=== PATIENT | male | born 1960 | race Caucasian/White ===

== ENCOUNTER → 2018-09-08 | Outpatient (CLI) | payer BC ==
[~2018-09-08] MED LIST: DOXYCYCLINE100 MG PO; GLUCOPHAGE1000 MG PO; LISINOPRIL10 M1 PO; PAROXETINE HCL20 MG PO; ROSUVASTATIN CA20 MG PO; TRULICITY0.75 MG/0. SC; ULTRAM50 MG PO; XARELTO10 MG PO
--- NOTE | ~2018-09-08 | EKG ---
[place], [place] ELECTROCARDIOGRAM REPORT NAME: KENDRA DUBOIS UNIT #: [id number] ROOM: DOCTOR: EPIPHANY DRAFT REPORT BIRTHDATE: [birth year] [facility] Test Date: 2018-09-08 Test Time: 14:11:01 Pat Name: KENDRA DUBOIS Department: Room: Gender: M [employer]ap Security Architect: : [id number] Requested By: KRISHNA PARSON Order Number: [id number] Reading MD: Nik Cuevas MD Measurements Intervals [place] Rate: 73 P: -4 ND: 176 QRS: -35 QRSD: 99 T: 3 QT: 405 QTc: 447 Interpretive Statements Sinus rhythm Left ventricular hypertrophy Anterior Q waves, possibly due to LVH No previous ECG available for comparison Electronically Signed On 09-08-2018 18:46:45 PDT by Nik Cuevas MD CM:EKGRPT:ELECTROCARDIOGRAM REPORT [id number] KRISHNA PARSON DPM EPIPHDAVI DRAFT REPORT KRISHNA PARSON DPM
[2018-09-08 14:09] LABS: BILIRUBIN NEGATIVE (NEGATIVE); BLOOD NEGATIVE (NEGATIVE); CLARITY SL CLOUDY (CLEAR); COLOR YELLOW (YELLOW); GLUCOSE 2+ (NEGATIVE); KETONE NEGATIVE (NEGATIVE); LEUKO ESTERASE NEGATIVE (NEGATIVE); NITRITE NEGATIVE (NEGATIVE); PH 5.5 (5.0-9.0); SPECIFIC GRAVITY >= 1.030 (1.005-1.030); UROBILINOGEN 0.2 E.U./dl (0.2-1.0)
[2018-09-08 14:12] LABS: BASO # 0.1 10*3/uL (0.0-0.1); BASO % 0.9 % (0.0-1.0); EOS # 0.2 10*3/uL (0.0-0.4); EOS % 2.2 % (1.0-4.0); HEMATOCRIT 44.7 % (42.0-52.0); HEMOGLOBIN 15.7 g/dl (14.0-18.0); LYMPH # 1.8 10*3/uL (1.3-4.4); LYMPH % 27.2 % (27.0-41.0); MEAN CELL VOLUME 93.5 fl (80.0-94.0); MEAN CORPUSCULAR HGB 32.8 pg (27.0-31.0); MEAN CORPUSCULAR HGB CONC 35.1 g/dl (33.0-37.0); MEAN PLATELET VOLUME 9.7 fl (9.6-12.3); MONO # 0.5 10*3/uL (0.1-1.0); MONO % 7.2 % (3.0-9.0); NEUT # 4.2 10*3/uL (2.3-7.9); NEUT % 62.1 % (47.0-73.0); PLATELET COUNT AUTOMATED 165 10*3/uL (130-400); RED BLOOD COUNT 4.78 10*6/uL (4.50-5.90); RED CELL DISTRI WIDTH 12.3 % (0-14.5); WHITE BLOOD COUNT 6.7 10*3/uL (4.8-10.8)
[2018-09-08 14:20] LABS: BACTERIA TRACE; MUCOUS 1+
[2018-09-08 14:26] LABS: BUN 25 mg/dl (7-24); CHLORIDE 102 mmol/L (98-107); CREATININE 1.09 mg/dL (0.70-1.30); POTASSIUM 4.1 mmol/L (3.5-5.1); SODIUM 137 mmol/L (136-145)
== END | disposition home or self-care (01) ==
LOC: LAB 12:48
PROVIDERS: Podiatrist
DX: S86.312A Strain of muscle(s) and tendon(s) of peroneal muscle group at lower leg level, left leg, initial encounter (principal); R94.31 Abnormal electrocardiogram [ECG] [EKG]; I51.7 Cardiomegaly; X58.XXXA Exposure to other specified factors, initial encounter; Y93.89 Activity, other specified; Y92.89 Other specified places as the place of occurrence of the external cause; Y99.8 Other external cause status

== ENCOUNTER → 2018-09-16 | Day surgery (SDC) | payer BC ==
[~2018-09-16] VITALS: Ht 177.8 cm; Wt 97.5 kg
--- NOTE | ~2018-09-16 | WRIGHTHP ---
[place], [place] PATIENT HISTORY AND PHYSICAL EXAM NAME: KENDRA DUBOIS [facility] #: [id number] UNIT #: [id number] ROOM: DOCTOR: KRISHNA PARSON DPM BIRTHDATE: [birth year] DOS: 09/16/2018 INDICATIONS: The patient was seen for very painful left ankle, lateral aspect of his ankle has been hurting for quite some time. MRI suggested he has the split peroneal brevis tear and tenosynovitis of his peroneal longus tendon. He consented for surgery at [facility] on 09/16/2018 for debridement and repair, possible tenodesis and possibly use of Graftjacket for application of the tendon tear. With this in mind, he is aware of pros, cons, risks, benefits. He understands the perioperative management. He understands about anticoagulation therapy. The pros, cons, risks, and benefits were discussed with him and his family. In the meantime, he is aware of pros, cons, risks, benefits including overcorrection, under correction, recurrence of stump infection, worsening arterial pain, nerve injury, soft tissue defect, etc. With this in mid, he understands he may need more surgery. He is consented for surgery. He agrees with the site marking for the surgery as well. He is set for surgery today on 09/16/2018. KRISHNA PARSON DPM CM:HISPHYS:PATIENT HISTORY AND PHYSICAL EXAMINATION [id number] KRISHNA PARSON DPM 10/28/18 2011 interface
--- NOTE | ~2018-09-16 | O ---
[place], [place] OPERATIVE NOTE NAME: KENDRA DUBOIS [facility] #: [id number] UNIT #: [id number] ROOM: DOCTOR: BLANK FIELDSKRISHNA BIRTHDATE: [birth year] DOS: 09/16/2018 SURGEON: Krishna Parson DPM ASSISTANTS: 1. Dr. Dereje Mccabe. 2. Dr. Chase Jorge. PREOPERATIVE DIAGNOSES: 1. Peroneal brevis tendon tear. 2. Peroneal longus tenosynovitis of the left ankle. POSTOPERATIVE DIAGNOSES: 1. Peroneal brevis tendon tear. 2. Peroneal longus tenosynovitis of the left ankle. PROCEDURE PERFORMED: 1. Debridement and excision of the peroneal brevis tendon tear. 2. Tenodesis of the peroneal longus and the peroneal brevis tendon. 3. Application of Graftjacket, left. DESCRIPTION OF PROCEDURE: The patient was seen in preop holding area and appropriate site marking was performed. He and his family concurred and operative site was marked again and pros, cons, risks and benefits of surgery and post-treatment and the perioperative management were discussed with the patient and family. The patient was brought to OR, placed well-padded OR table, where again anesthesia was achieved. Prior to this, he had a popliteal block done on left lower extremity. Once he was on the OR table, anesthesia was achieved, his left foot and leg were prepped and draped in usual sterile fashion. Hemostasis was accomplished by mid-thigh tourniquet, it was inflated to 300 mmHg. PROCEDURE #1: DEBRIDEMENT AND EXCISION OF THE PERONEAL BREVIS TENDON TEAR. Attention directed to the left lateral aspect of the ankle, where a 6 cm incision was made from the distal retromalleolar area along the distal fibula around to the base of the fifth metatarsal, deepened in same plane using sharp and blunt dissection, avoiding neurovascular structures, carried down to the deep tissues where the significant amount of scar tissue, fibrosis and disease of tissue from the injury of the peroneal longus tendon. A very large bulbous mass of the tendon was identified and there was a bucket handle tear in the peroneal brevis tendon. This tendon then was excised and removed in total, approximately 3 cm of it. Next, the peroneal longus tendon was debrided. I removed the tenosynovitis. PROCEDURE #2: TENODESIS OF THE PERONEAL LONGUS AND THE PERONEAL BREVIS TENDON. Next, remaining stump of the distal portion and the proximal portion of the peroneal brevis stump had a relief graft inserted through the peroneal longus and this was inserted under physiological tension and sutured with 0 Vicryl and the distal stump was inserted at the ankle at 90 degrees into distal stump was secured to the peroneal longus with relief graft. This was sutured with 0 [place], [place] OPERATIVE NOTE NAME: KENDRA DUBOIS UNIT #: [id number] ROOM: DOCTOR: KRISHNA PARSON DPM BIRTHDATE: [birth year] [place]. PROCEDURE #3: APPLICATION OF GRAFTJACKET FOR TENODESIS OF THE PERONEAL LONGUS AND PERONEAL BREVIS TENDON. Next, a 2 x 4 cm Graftjacket was applied and sutured with a burrito type wrap around the peroneal longus and brevis tenodesis. This was sutured very distinctly and tightly around the graft and the tear of the peroneal longus and brevis tendon together. Next, the peroneal and extensor retinaculum then was sutured with running suture, keeping the peroneal longus or brevis tendon in the retromalleolar area without dislocation. This was sutured with 0 Vicryl and the deep sutures of 0 Vicryl and skin was closed with 2-0 nylon. Surgical wounds were dressed with Betadine-soaked Adaptic, 4 x 4s, and Rika in a sterile compressive fashion. A Univalve BK cast was applied. He tolerated the procedure and anesthesia well and left the OR with vital signs stable and vascular intact. KRISHNA PARSON DPM CM:OPRECORD:OPERATIVE NOTE 19 99 KRISHNA PARSON DPM 10/20/18 1340 interface
--- NOTE | ~2018-09-16 | WRIGHTHP ---
[place], [place] PATIENT HISTORY AND PHYSICAL EXAM NAME: KENDRA DUBOIS [facility] #: [id number] UNIT #: [id number] ROOM: DOCTOR: KRISHNA PARSON DPM BIRTHDATE: [birth year] DOS: LOWER EXTERMITY PHYSICAL EXAMINATION: VASCULAR: He has palpable pedal pulses, 2/4 DP and PT bilaterally. Good cap refill time. NEUROLOGICAL: He has intact epicritic sensation on left. DERMATOLOGICAL: He has an inflamed, erythematous area of the left lateral ankle over the peroneal tendons. MUSCULOSKELETAL: He has pain and tenderness over the peroneal brevis and longus tendon. ORTHOPEDIC: No gross deformity on the orthopedic exam. KRISHNA PARSON DPM CM:HISPHYS:PATIENT HISTORY AND PHYSICAL EXAMINATION 19 47 KRISHNA PARSON DPM 09/16/181847 interface
[2018-09-16 10:44] VITALS: BP 160/90
[2018-09-16 16:17] VITALS: BP 134/77
[2018-09-16 16:32] VITALS: BP 107/56
[2018-09-16 16:47] VITALS: BP 117/75
[2018-09-16 17:02] VITALS: BP 133/75
[2018-09-16 17:17] VITALS: BP 124/72
== END | disposition home or self-care (01) ==
LOC: SDC 09-08 12:30
DX: S86.312A Strain of muscle(s) and tendon(s) of peroneal muscle group at lower leg level, left leg, initial encounter (principal); M65.872 Other synovitis and tenosynovitis, left ankle and foot; I10 Essential (primary) hypertension; I25.2 Old myocardial infarction; E78.5 Hyperlipidemia, unspecified; E11.9 Type 2 diabetes mellitus without complications; F32.9 Major depressive disorder, single episode, unspecified; K21.9 Gastro-esophageal reflux disease without esophagitis; D64.9 Anemia, unspecified; E66.9 Obesity, unspecified; Z98.890 Other specified postprocedural states; Z88.1 Allergy status to other antibiotic agents; Z79.899 Other long term (current) drug therapy; X58.XXXA Exposure to other specified factors, initial encounter; Y93.89 Activity, other specified; Y92.89 Other specified places as the place of occurrence of the external cause; Y99.8 Other external cause status